=== PATIENT | male | born 1965 | race Caucasian/White ===

== ENCOUNTER 2016-11-29 17:33 | Emergency (ER) | payer MEDICAID ==
[~2016-11-29] VITALS: Ht 190.5 cm; Wt 131.5 kg
[~2016-11-29 17:33] MED LIST: CIPRO500 MG PO; COLACE100 M1 PO; LACTINEX1 TAB.CHEW PO; LEVAQUIN750 MG PO; NORCO 5/325 MG1 TAB PO; PERCOCET 325 MG1 TA1 PO; ULTRAM50 MG PO; ZOVIRAX800 M1 PO
[2016-11-29 18:50] VITALS: BP 125/80
--- NOTE | 2016-11-29 20:20 | NUR ---
PATIENT LEFT WITHOUT BEING SEEN BY DR. NAVA. NO FURTHER CARE PROVIDED FOR PATIENT.
== END 2016-11-29 20:20 | disposition left against medical advice (07) ==
LOC: MED 17:34
DX: M54.5 Low back pain (principal); Z53.21 Procedure and treatment not carried out due to patient leaving prior to being seen by health care provider

== ENCOUNTER 2017-03-12 01:45 | Emergency (ER) | payer OTHER, MEDICAID ==
[~2017-03-12] VITALS: Ht 190.5 cm; Wt 127.0 kg
[~2017-03-12 01:45] MED LIST changes: +ACET-5629 PO; -CIPRO500 MG PO; -COLACE100 M1 PO; +DOCU-67 PO; +LAC PO; -LACTINEX1 TAB.CHEW PO; -LEVAQUIN750 MG PO; +LEVO750T2 PO; -NORCO 5/325 MG1 TAB PO; -PERCOCET 325 MG1 TA1 PO; +TRAM50TA94 PO; -ULTRAM50 MG PO; -ZOVIRAX800 M1 PO
[2017-03-12 01:48] VITALS: BP 144/100
--- NOTE | 2017-03-12 03:03 | NUR ---
PT TAKEN TO BED 5
--- NOTE | 2017-03-12 03:15 | NUR ---
51 Y/O M /C/O RT FLANK PAIN FOR 3-4 DAYS, NAUSEA, AND CHILLS. ER MADE AWARE.
[2017-03-12 03:39] LABS: BASOPHILS # (AUTO) 0.4 K/uL (0.00-0.22); BASOPHILS % (AUTO) 4.2 % (0.0-2.0); EOSINOPHILS # (AUTO) 0.4 K/uL (0-0.4); EOSINOPHILS % (AUTO) 3.6 % (0.0-4.0); HEMATOCRIT 50.3 % (36-52); HEMOGLOBIN 16.3 g/dL (12.0-18.0); LYMPHOCYTES # (AUTO) 2.4 K/uL (2.0-11.5); LYMPHOCYTES % (AUTO) 24.9 % (20.5-51.1); MEAN CORPUSCULAR HEMOGLOBIN 29 pg (27-31); MEAN CORPUSCULAR HGB CONC 32 g/dL (33-37); MEAN CORPUSCULAR VOLUME 91 fL (80-94); MONOCYTES # (AUTO) 0.5 K/uL (0.8-1.0); MONOCYTES % (AUTO) 5.3 % (1.7-9.3); NEUTROPHILS # (AUTO) 6.1 K/uL (1.8-7.7); PLATELET COUNT (AUTO) 176 K/uL (140-450); RED BLOOD CELL COUNT(AUTO) 5.53 MIL/uL (4.20-6.10); RED CELL DISTRIBUTION WIDTH 13.1 % (11.6-13.7); WHITE BLOOD COUNT (AUTO) 9.8 K/uL (4.8-10.8)
[2017-03-12] MEDS ORDERED: KETOROLAC 30 MG/ML VIAL IVP ONE (03:40)
[2017-03-12] MEDS ORDERED: ONDANSETRON 4 MG/2 ML VIAL IVP ONE (03:40)
[2017-03-12 03:50] LABS: ANION GAP 11.3 (8-16); CALCIUM 8.8 mg/dL (8.5-10.1); CARBON DIOXIDE 25.6 mmol/L (21-32); CREATININE 0.7 mg/dL (0.7-1.3); POTASSIUM 3.9 mmol/L (3.5-5.1)
[2017-03-12 03:56] LABS: ALBUMIN 3.2 g/dL (3.4-5.0); TOTAL BILIRUBIN 0.6 mg/dL (0.0-1.0); TOTAL PROTEIN, SERUM 7.9 g/dL (6.4-8.2)
[2017-03-12] MEDS ORDERED: NACL 0.9% 1,000 ML IV ONE (04:25)
--- NOTE | 2017-03-12 04:34 | NUR ---
Dr. Joseph evaluating patient at bedside.
[2017-03-12] MEDS ORDERED: MORPHINE SULFATE 10 MG/ML SYR IVP ONE (04:35)
[2017-03-12 04:44] LABS: APPEARANCE,URINE SL CLOUDY (CLEAR); BILIRUBIN,URINE NEGATIVE (NEGATIVE); BLOOD, URINE NEGATIVE (NEGATIVE); COLOR,URINE YELLOW (YELLOW); LEUKOCYTE ESTERASE ,URINE NEGATIVE (NEGATIVE); NITRITE, URINE NEGATIVE (NEGATIVE); PROTEIN,URINE NEGATIVE (NEGATIVE); UGLUCOSE NEGATIVE (NEGATIVE); UROBILINOGEN,URINE 0.2 EU/dL (0.2 - 1)
[2017-03-12 05:02] LABS: BACTERIA,URINE 1+ /HPF (None Seen); MUCUS,URINE 2+ /LPF (None Seen); RBC,URINE 0-5 (RARE) /HPF (0-5); SQUAMOUS EPITHELIAL CELL,UR 0-3 (FEW) /LPF (0-3 (FEW))
--- NOTE | 2017-03-12 05:20 | NUR ---
PT RESTING IN BED, VSS, NO S/S OF DISTRESS NOTED AT THE MOMENT.
[2017-03-12] MEDS ORDERED: cefTRIAXone 2,000 MG in DEXTROSE 5% 100 ML IV ONE (06:00)
[2017-03-12] MEDS ORDERED: cefTRIAXone 2,000 MG VIAL ONE (06:24)
--- NOTE | 2017-03-12 06:34 | NUR ---
PT RESTING IN BED VSS, RECEIVING IV ANTIBIOTICS.
--- NOTE | 2017-03-12 07:00 | NUR ---
RECEIVED REPORT FROM RYAN BRADSHAW.Patient appears to be resting comfortably in bed. Vital Signs within normal limits. Respirations even and unlabored.WILL CONTINUE TO MONITOR.
--- NOTE | 2017-03-12 07:11 | NUR ---
IV removed, catheter intact and site benign. Applied folded 4x4 gauze and tape to stop bleeding.
[2017-03-12 07:13] VITALS: BP 104/69
--- NOTE | 2017-03-12 07:13 | NUR ---
Patient discharged with v/s stable. Written and verbal after care instructions given and explained. Patient alert, oriented and verbalized understanding of instructions. Ambulatory with steady gait. All questions addressed prior to discharge. ID band removed. Patient advised to follow up with PMD. Rx of NAPROSYN & CIPRO given. Patient educated on indication of medication including possible reaction and side effects. Opportunity to ask questions provided and answered.
== END 2017-03-12 07:13 | disposition home or self-care (01) ==
LOC: MED 01:45
DX: N39.0 Urinary tract infection, site not specified (principal); Z88.6 Allergy status to analgesic agent
CPT/HCPCS: 36415; 74176; 80053; 81001; 85025; 87086; 96361; 96365; 96375; 99285; J0696; J1885; J2270; J2405; J7030

== ENCOUNTER 2018-12-31 17:37 | Emergency (ER) | payer MEDICAID, OTHER ==
[~2018-12-31] VITALS: Ht 190.5 cm; Wt 150.1 kg
[~2018-12-31 17:37] MED LIST changes: +DOCU-299 PO; -DOCU-67 PO; +TRAM50TA1 PO; -TRAM50TA94 PO
[2018-12-31 17:43] VITALS: BP 134/66
--- NOTE | 2018-12-31 18:02 | NUR ---
PT TO ED WITH C/O L LEG AND LOWER BACK PAIN X 3 MOS. PT DENIES FALL OR TRAUMA. NO OBVIOUS DEFORMITY NOTED. CMS INTACT. +ROM. ABLE TO AMBULATE WITHOUT ASSIST. PT PLACED INTO BED, PENDING MD OTTO.
[2018-12-31] MEDS ORDERED: KETOROLAC 60 MG/2 ML VIAL IM ONE (19:20)
--- NOTE | 2018-12-31 19:34 | NUR ---
191-- DR. OROSCO BEDSIDE EVALUATING PT
[2018-12-31 19:42] VITALS: BP 129/72
== END 2018-12-31 19:43 | disposition home or self-care (01) ==
LOC: MED 17:37
DX: M54.5 Low back pain (principal); Z98.890 Other specified postprocedural states; Z79.891 Long term (current) use of opiate analgesic; Z79.2 Long term (current) use of antibiotics; Z79.899 Other long term (current) drug therapy; Z88.6 Allergy status to analgesic agent
CPT/HCPCS: 96372; 99283; J1885

== ENCOUNTER 2019-03-07 23:01 | Emergency (ER) | payer MEDICAID, OTHER ==
[~2019-03-07] VITALS: Ht 190.5 cm; Wt 151.0 kg
[2019-03-07 23:09] VITALS: BP 126/70
--- NOTE | 2019-03-07 23:17 | NUR ---
PT TAKEN TO BED 6
--- NOTE | 2019-03-07 23:20 | NUR ---
53 Y/O MALE PRESENTS TO ED, C/O RIGHT SHOULDER ACHING, SHARP PAIN 04/12. PT STATES HE WAS LIFTING OBJECTS AROUND THE HOUSE WHEN HE FELL AND LANDED ON HIS SIDE. NO HEAD TRAUMA ASSESSED. PT DENIES ANY SYNCOPAL EPISODE OR DIZZINESS DURING INCIDENT. PT ALERT TO PERSON, PLACE, TIME, EVENT. LIMITED ROM ON RIGHT SHOULDER. BILATERAL EQUAL STRONG PULSES ON BOTH ARMS. PT HAS NO MEDICAL HX. PT VSS. DR THAO AWARE. WILL CONTINUE TO MONITOR.
--- NOTE | 2019-03-07 23:29 | NUR ---
Dr. Bronson examining patient.
[2019-03-07] MEDS ORDERED: MORPHINE SULFATE 2 MG/ML SYR IM ONE (23:30)
--- NOTE | 2019-03-07 23:50 | NUR ---
X-Ray at bedside.
[2019-03-08] MEDS ORDERED: MORPHINE SULFATE 2 MG/ML SYR IM ONE (00:25)
--- NOTE | 2019-03-08 00:41 | NUR ---
COVERING PRIMARY RN FOR LUNCH RELIEF. ASSUMED TEMPORARY CARE OF PT.
[2019-03-08 01:05] VITALS: BP 122/64
--- NOTE | 2019-03-08 01:06 | NUR ---
Patient discharged with v/s stable. Written and verbal after care instructions given and explained. Patient alert, oriented and verbalized understanding of instructions. Ambulatory with steady gait. All questions addressed prior to discharge. ID band removed. Patient advised to follow up with PMD. Rx of TRAMDAOL given. Patient educated on indication of medication including possible reaction and side effects. Opportunity to ask questions provided and answered.
== END 2019-03-08 01:06 | disposition home or self-care (01) ==
LOC: MED 23:01
DX: S40.011A Contusion of right shoulder, initial encounter (principal); Z79.899 Other long term (current) drug therapy; Z88.8 Allergy status to other drugs, medicaments and biological substances; W01.0XXA Fall on same level from slipping, tripping and stumbling without subsequent striking against object, initial encounter; Y93.89 Activity, other specified; Y92.89 Other specified places as the place of occurrence of the external cause; Y99.8 Other external cause status
CPT/HCPCS: 73030; 96372; 99283; J2270; Q0092

== ENCOUNTER 2019-04-10 01:53 | Emergency (ER) | payer MEDICAID, OTHER ==
[~2019-04-10] VITALS: Ht 190.5 cm; Wt 140.6 kg
[2019-04-10 02:01] VITALS: BP 134/81
--- NOTE | 2019-04-10 02:05 | NUR ---
PT AMBULATED TO LOBBY.
--- NOTE | 2019-04-10 02:53 | NUR ---
PT TAKEN TO XRAY
--- NOTE | 2019-04-10 03:40 | NUR ---
PATIENT CALLED TO PUT ON BED NO RESPONSE PATIENT LEFT WITHOUT BEING SEEN BY DR. WEI. NO FURTHER CARE PROVIDED FOR PATIENT.
--- NOTE | 2019-04-10 03:45 | NUR ---
CALLED FOR THE SECOND TIME NO RESPONSE
--- NOTE | 2019-04-10 03:50 | NUR ---
CALLED FOR THE THIRD TIME, NO RESPONSE
== END 2019-04-10 03:40 | disposition left against medical advice (07) ==
LOC: MED 01:53
DX: S43.004A Unspecified dislocation of right shoulder joint, initial encounter (principal); R11.0 Nausea; Z53.21 Procedure and treatment not carried out due to patient leaving prior to being seen by health care provider; X58.XXXA Exposure to other specified factors, initial encounter; Y93.89 Activity, other specified; Y92.89 Other specified places as the place of occurrence of the external cause; Y99.8 Other external cause status
CPT/HCPCS: 73030; 99281

== ENCOUNTER 2019-04-11 07:46 | Emergency (ER) | payer SELFPAY ==
[~2019-04-11] VITALS: Ht 190.5 cm; Wt 147.2 kg
[2019-04-11 07:50] VITALS: BP 125/78
--- NOTE | 2019-04-11 08:04 | NUR ---
BIB SELF C/O RIGHT SHOULDER PAIN X 1.5 MONTHS S/P FALL. PT REPORTS MOVING A COUCH AND HE SLIPPED, FALLING BACK AND COUCH LANDED ON RT SHOULDER. PT REPORTS SHARP/POPPING PAIN AT 7/10 THAT RADIATES DOWN RT ARM CAUSING WEAKNESS, AND INCREASES WITH MOVING RT ARM. PT UNABLE TO LIFT RT ARM MORE THAT 30 DEGREES. NO ERYTHEMA, EDEMA, BRUISING, OR DEFORMITY PRESENT. RADIAL PULSE ON RT ARM 2+, CAP REFIL < 2 SEC, COLOR WNL. PT WAS SEEN HERE IN ED LAST MONTH AND WAS PRESCRIBED WITH TRAMADOL W/ NO RELIEF. PT WAS ALSO SEEN HERE ON 04/09/19 AND ELOPED. VSS. ER TO SEE PT. PMH:DENIES MED RX: DENIES ALLERGY: DENIES
[2019-04-11 08:39] VITALS: BP 125/78
== END 2019-04-11 08:39 | disposition home or self-care (01) ==
LOC: MED 07:46
DX: M75.41 Impingement syndrome of right shoulder (principal); Z98.890 Other specified postprocedural states; Z79.899 Other long term (current) drug therapy; Z79.2 Long term (current) use of antibiotics; Z79.891 Long term (current) use of opiate analgesic; Z88.6 Allergy status to analgesic agent
CPT/HCPCS: 99282

== ENCOUNTER 2019-12-21 16:48 | Emergency (ER) | payer MEDICAID, OTHER ==
[~2019-12-21] VITALS: Ht 190.5 cm; Wt 156.0 kg
[2019-12-21 16:56] VITALS: BP 126/78
--- NOTE | 2019-12-21 17:06 | NUR ---
PT C/O CONSISTENT SHARP RT POSTERIOR KNEE PAIN X 3 DAY, DENIES INJURY/TRAUMA. REPORTS 10/10 PAIN. NO EFFUSION, EYRTHEMA, WARMNESS, DEFORMITY NOTICED ON THE RT KNEE. SLIGHT REDUCED OF ROM ON RIGHT KNEE. PT IS ABLE TO AMBUALTE. PT DENIES ANY FEVER, CP, SOB, OR COUGH AT THIS TIME; VSS; PATIENT POSITIONED FOR COMFORT; HOB ELEVATED; BEDRAILS UP X1; BED DOWN. ER MD MADE AWARE OF PT STATUS.
--- NOTE | 2019-12-21 17:20 | NUR ---
XRAY IS AT BEDSIDE.
[2019-12-21] MEDS ORDERED: KETOROLAC 60 MG/2 ML VIAL IM ONE (17:30)
--- NOTE | 2019-12-21 17:35 | NUR ---
PT DENIES HE HAS ALLERGY TO IBUPROFEN AND HE DENIES HIS PCP TOLD ME NOT TO TAKE IBUPROFEN OR POOR KIDNEY FUNCTION.
--- NOTE | 2019-12-21 18:05 | NUR ---
PT DENIED CRUTCHES STATING HE HAS A BAD SHOULDER. TRIED TO DEMONSTRATE THE USE OF THE CRUTCHES JUST IN CASE, BUT PATIENT CONTINUED TO DENY. ER ASAD JONES MADE AWARE.
[2019-12-21 18:13] VITALS: BP 121/62
--- NOTE | 2019-12-21 18:16 | NUR ---
Patient discharged with v/s stable. Written and verbal after care instructions given and explained. Patient alert, oriented and verbalized understanding of instructions. Ambulatory with steady gait. All questions addressed prior to discharge. ID band removed. Patient advised to follow up with PMD. Rx of IBU given. Patient educated on indication of medication including possible reaction and side effects. Opportunity to ask questions provided and answered.
== END 2019-12-21 18:16 | disposition home or self-care (01) ==
LOC: MED 16:48
DX: M25.561 Pain in right knee (principal); Z88.6 Allergy status to analgesic agent; Z79.899 Other long term (current) drug therapy; X58.XXXA Exposure to other specified factors, initial encounter; Y93.89 Activity, other specified; Y99.8 Other external cause status
CPT/HCPCS: 29505; 73562; 96372; 99283; J1885

== ENCOUNTER 2019-12-27 10:54 | Emergency (ER) | payer MEDICAID, OTHER ==
[~2019-12-27] VITALS: Ht 190.5 cm; Wt 149.7 kg
[2019-12-27 11:03] VITALS: BP 116/77
--- NOTE | 2019-12-27 11:15 | NUR ---
DR LOPEZ AT BEDSIDE.
--- NOTE | 2019-12-27 11:15 | NUR ---
PT C/O KNEE PAIN. 12/26/19 PM PT STATES KNEE GAVE OUT AND TWISTED. SWELLING IS PRESENT SURROUNDING RIGHT KNEE. PAIN RADIATES DOWN TO RIGHT FOOT. PT CAME INTO ER LAST WEEK FOR KNEE PAIN. PT IS ABLE TO MOVE FOOT AND TOES. PT IS UNABLE TO PUT WEIGHT ON RIGHT LEG DUE TO KNEE PAIN. SKIN IS INTACT AND DRY. INJURED RIGHT KNEE IS WARM TO TOUCH. NO PMHX NKA/NKDA
[2019-12-27] MEDS ORDERED: HYDROcodone/APAP 5/325 MG 1 TAB TAB PO ONE (11:20)
[2019-12-27] MEDS ORDERED: KETOROLAC 60 MG/2 ML VIAL IM ONE (11:20)
--- NOTE | 2019-12-27 11:47 | NUR ---
MEDICATION GIVEN PRESCRIBED. FOR PAIN CONTROL.
[2019-12-27 12:07] VITALS: BP 116/77
--- NOTE | 2019-12-27 12:14 | NUR ---
Patient discharged with v/s stable. Written and verbal after care instructions given and explained. Patient alert, oriented and verbalized understanding of instructions. Ambulatory with steady gait. All questions addressed prior to discharge. ID band removed. Patient advised to follow up with PMD. Rx of NORCO 5MG-325MG TAB AND NAPROSYN 375MG TAB given. Patient educated on indication of medication including possible reaction and side effects. Opportunity to ask questions provided and answered.
--- NOTE | 2019-12-27 12:15 | NUR ---
APPLIED ANGELICA WRAP TO RIGHT KNEE AND PT DEMONSTRATED PROPER USE OF CRUTCHES
== END 2019-12-27 12:14 | disposition home or self-care (01) ==
LOC: MED 10:54
DX: S83.91XA Sprain of unspecified site of right knee, initial encounter (principal); M17.11 Unilateral primary osteoarthritis, right knee; Z79.899 Other long term (current) drug therapy; Z88.8 Allergy status to other drugs, medicaments and biological substances; X50.1XXA Overexertion from prolonged static or awkward postures, initial encounter; Y93.89 Activity, other specified; Y92.89 Other specified places as the place of occurrence of the external cause; Y99.8 Other external cause status
CPT/HCPCS: 73562; 96372; 99283; J1885; Q0092

== ENCOUNTER 2020-01-03 18:40 | Emergency (ER) | payer MEDICAID, OTHER ==
[~2020-01-03] VITALS: Ht 190.5 cm; Wt 145.1 kg
[2020-01-03 18:40] VITALS: BP 148/73
[2020-01-03 19:56] LABS: BASOPHILS # (AUTO) 0.2 K/uL (0.00-0.22); BASOPHILS % (AUTO) 1.9 % (0.0-2.0); EOSINOPHILS # (AUTO) 0.1 K/uL (0-0.4); EOSINOPHILS % (AUTO) 0.9 % (0.0-4.0); HEMOGLOBIN 13.9 g/dL (12.0-18.0); LYMPHOCYTES # (AUTO) 1.4 K/uL (2.0-11.5); LYMPHOCYTES % (AUTO) 15.1 % (20.5-51.1); MEAN CORPUSCULAR HEMOGLOBIN 32 pg (27-31); MEAN CORPUSCULAR HGB CONC 35 g/dL (33-37); MEAN CORPUSCULAR VOLUME 91.5 fL (80-94); MONOCYTES % (AUTO) 10.8 % (1.7-9.3); NEUTROPHILS # (AUTO) 6.7 K/uL (1.8-7.7); NEUTROPHILS % (AUTO) 71.3 % (42.2-75.2); PLATELET COUNT (AUTO) 243 K/uL (140-450); RED BLOOD CELL COUNT(AUTO) 4.37 MIL/uL (4.20-6.10); RED CELL DISTRIBUTION WIDTH 13.2 % (11.6-13.7); WHITE BLOOD COUNT (AUTO) 9.4 K/uL (4.8-10.8)
[2020-01-03] MEDS ORDERED: AZITHROMYCIN 500 MG in DEXTROSE 5% 250 ML IV ONE (20:15)
[2020-01-03] MEDS ORDERED: AZITHROMYCIN 500 MG INJ VIAL IV ONE (20:19)
[2020-01-03] MEDS ORDERED: cefTRIAXone 1,000 MG VIAL ONE (20:20)
[2020-01-03 20:37] LABS: BILIRUBIN,URINE 2+ (NEGATIVE); BLOOD, URINE NEGATIVE (NEGATIVE); LEUKOCYTE ESTERASE ,URINE NEGATIVE (NEGATIVE); NITRITE, URINE POSITIVE (NEGATIVE); UGLUCOSE TRACE (NEGATIVE)
[2020-01-03 20:40] LABS: APPEARANCE,URINE HAZY (CLEAR)
[2020-01-03 20:45] LABS: PROTHROMBIN TIME 10.9 secs (10.8-13.4)
[2020-01-03 20:46] LABS: ALBUMIN 2.8 g/dL (3.4-5.0); ANION GAP 13.5 (8-16); CARBON DIOXIDE 26.5 mmol/L (21-32); CREATININE 0.9 mg/dL (0.6-1.3); TOTAL BILIRUBIN 1.2 mg/dL (0.0-1.0)
[2020-01-03 20:59] LABS: CREATINE KINASE MB 0.3 ng/mL (0-3.6)
[2020-01-03 21:06] LABS: COLOR,URINE AMBER (YELLOW)
[2020-01-03] MEDS ORDERED: POTASSIUM CHLORIDE 10 MEQ TABER PO ONE (21:15)
[2020-01-03 22:15] VITALS: BP 124/72
== END 2020-01-03 22:15 | disposition home or self-care (01) ==
LOC: MED 18:40
DX: J18.9 Pneumonia, unspecified organism (principal); E87.6 Hypokalemia; F17.200 Nicotine dependence, unspecified, uncomplicated; N39.0 Urinary tract infection, site not specified; R68.83 Chills (without fever); Z88.6 Allergy status to analgesic agent; Z79.899 Other long term (current) drug therapy
CPT/HCPCS: 36415; 71045; 80053; 81003; 82140; 82150; 82550; 82553; 83605; 83690; 84484; 85025; 85610; 85730; 87040; 87086; 96365; 96367; 99284; J0456; J0696

== ENCOUNTER 2021-06-08 20:20 | Emergency (ER) | payer MEDICAID, OTHER ==
[~2021-06-08] VITALS: Ht 190.5 cm; Wt 149.7 kg
[2021-06-08 20:29] VITALS: BP 154/80
--- NOTE | 2021-06-08 20:42 | NUR ---
PT AMBULATED TO BED 11.
--- NOTE | 2021-06-08 20:44 | NUR ---
PATIENT REPORTS RUQ ABDOMINAL PAIN, WAS SEEN AT [facility] RECENTLY FOR PAIN BUT WAS NOT SATISFIED WITH THEIR PAIN MANAGEMENT. RECENT RIGHT SHOULDER SX
--- NOTE | 2021-06-08 20:53 | NUR ---
ER AT BEDSIDE
[2021-06-08] MEDS ORDERED: PANTOPRAZOLE 40 MG TABEC PO ONE (20:55)
[2021-06-08] MEDS ORDERED: DICYCLOMINE HCL LIQUID 20 MG, ALUMINUM HYD/MAG/SIMETHICONE 30 ML, LIDOCAINE VISCOUS 2% ... PO ONE ×3 (20:55)
[2021-06-08] MEDS ORDERED: HYDROcodone/APAP 5/325 MG 1 TAB TAB PO ONE (20:55)
[2021-06-08] MEDS ORDERED: NACL 0.9% 1,000 ML IV ONE (20:55)
[2021-06-08] MEDS ORDERED: DICYCLOMINE HCL LIQUID 10 MG/5 ML UDC ONE (21:15)
[2021-06-08] MEDS ORDERED: ALUMINUM HYD/MAG/SIMETHICONE 30 ML UDC ONE (21:15)
[2021-06-08 21:21] LABS: BASOPHILS # (AUTO) 0.1 K/uL (0.00-0.22); BASOPHILS % (AUTO) 0.9 % (0.0-2.0); EOSINOPHILS # (AUTO) 0.1 K/uL (0-0.4); EOSINOPHILS % (AUTO) 1.3 % (0.0-4.0); HEMATOCRIT 45.6 % (36-52); HEMOGLOBIN 15.9 g/dL (12.0-18.0); LYMPHOCYTES # (AUTO) 2.2 K/uL (2.0-11.5); LYMPHOCYTES % (AUTO) 21.9 % (20.5-51.1); MEAN CORPUSCULAR HEMOGLOBIN 32 pg (27-31); MEAN CORPUSCULAR HGB CONC 35 g/dL (33-37); MEAN CORPUSCULAR VOLUME 91.3 fL (80-94); MONOCYTES # (AUTO) 0.7 K/uL (0.8-1.0); MONOCYTES % (AUTO) 7.4 % (1.7-9.3); NEUTROPHILS # (AUTO) 6.8 K/uL (1.8-7.7); NEUTROPHILS % (AUTO) 68.5 % (42.2-75.2); PLATELET COUNT (AUTO) 188 K/uL (140-450); RED CELL DISTRIBUTION WIDTH 13.7 % (11.6-13.7); WHITE BLOOD COUNT (AUTO) 9.9 K/uL (4.8-10.8)
[2021-06-08 21:41] LABS: ALBUMIN 3.6 g/dL (3.4-5.0); CARBON DIOXIDE 24.9 mmol/L (21-32); CREATININE 0.7 mg/dL (0.6-1.3); POTASSIUM 3.9 mmol/L (3.5-5.1)
[2021-06-08] MEDS ORDERED: MORPHINE SULFATE 4 MG/ML SYR IVP ONE (22:10)
[2021-06-09] MEDS ORDERED: MORPHINE SULFATE 4 MG/ML SYR IVP ONE (01:50)
[2021-06-09] MEDS ORDERED: OMEP20EC11 PO (03:27)
--- NOTE | 2021-06-09 03:39 | NUR ---
PATIENT CLEARED FOR DISCHARGE AT THIS TIME. PATIENT HAS NO FURTHER COMPLAINTS OR CONCERNS FOLLOWING DISCHARGE TEACHING. ADVISED TO FOLLOW UP WITH PCP AND RETURN IF CONDITION WORSENS.
[2021-06-09 03:40] VITALS: BP 132/77
== END 2021-06-09 03:39 | disposition home or self-care (01) ==
LOC: MED 20:20
DX: R10.11 Right upper quadrant pain (principal)
CPT/HCPCS: 36415; 74177; 80053; 83690; 85025; 96361; 96374; 96375; 99285; J2270; Q9967; J7030

== ENCOUNTER 2022-02-07 06:15 | Emergency (ER) | payer OTHER ==
[~2022-02-07] VITALS: Ht 190.5 cm; Wt 149.7 kg
[~2022-02-07 06:15] MED LIST changes: +OMEP20EC11 PO
[2022-02-07 06:23] VITALS: BP 135/75
--- NOTE | 2022-02-07 06:28 | NUR ---
Patient waited in lobby.
--- NOTE | 2022-02-07 06:31 | NUR ---
Dr. Lara examining patient.
[2022-02-07] MEDS ORDERED: ONDANSETRON 4 MG ODT PO ONE ×2 (06:35→09:00)
[2022-02-07] MEDS ORDERED: KETOROLAC 60 MG/2 ML VIAL IM ONE (06:35)
[2022-02-07] MEDS ORDERED: DIPHENOXYLATE /ATROPINE 2.5 MG TAB PO ONE (06:35)
[2022-02-07 08:10] LABS: BASOPHILS # (AUTO) 0.2 K/uL (0.00-0.22); BASOPHILS % (AUTO) 1.4 % (0.0-2.0); EOSINOPHILS # (AUTO) 0.1 K/uL (0-0.4); EOSINOPHILS % (AUTO) 1.1 % (0.0-4.0); HEMATOCRIT 48.4 % (36-52); HEMOGLOBIN 16.3 g/dL (12.0-18.0); LYMPHOCYTES # (AUTO) 2.7 K/uL (2.0-11.5); LYMPHOCYTES % (AUTO) 24.4 % (20.5-51.1); MEAN CORPUSCULAR HEMOGLOBIN 30 pg (27-31); MEAN CORPUSCULAR HGB CONC 34 g/dL (33-37); MEAN CORPUSCULAR VOLUME 89.8 fL (80-94); MONOCYTES # (AUTO) 0.9 K/uL (0.8-1.0); MONOCYTES % (AUTO) 8.2 % (1.7-9.3); NEUTROPHILS # (AUTO) 7.2 K/uL (1.8-7.7); NEUTROPHILS % (AUTO) 64.9 % (42.2-75.2); PLATELET COUNT (AUTO) 174 K/uL (140-450); RED BLOOD CELL COUNT(AUTO) 5.39 MIL/uL (4.20-6.10); RED CELL DISTRIBUTION WIDTH 14.8 % (11.6-13.7); WHITE BLOOD COUNT (AUTO) 11.1 K/uL (4.8-10.8)
[2022-02-07 08:14] LABS: ALBUMIN 3.5 g/dL (3.4-5.0); ANION GAP 14.1 (8-16); CARBON DIOXIDE 24.1 mmol/L (21-32); POTASSIUM 4.2 mmol/L (3.5-5.1)
[2022-02-07 08:38] LABS: CREATININE 0.8 mg/dL (0.6-1.3)
[2022-02-07] MEDS ORDERED: ALUMINUM HYD/MAG/SIMETHICONE 30 ML UDC PO ONE (09:00)
[2022-02-07] MEDS ORDERED: FAMOTIDINE 20 MG TAB PO ONE (09:00)
[2022-02-07] MEDS ORDERED: ATRO1TAB PO (10:02)
[2022-02-07] MEDS ORDERED: ACET-8386 PO (10:02)
[2022-02-07] MEDS ORDERED: ONDA-188 PO (10:02)
[2022-02-07] MEDS ORDERED: FAMO-92 PO (10:02)
[2022-02-07 10:11] VITALS: BP 141/87
--- NOTE | 2022-02-07 10:11 | NUR ---
Patient discharged with v/s stable. Written and verbal after care instructions given and explained. Patient alert, oriented and verbalized understanding of instructions. Ambulatory with steady gait. All questions addressed prior to discharge. ID band removed. Patient advised to follow up with PMD. Rx of PEPCID, LOMOTIL, ZOFRAN AND NORCO 5-325 given. Patient educated on indication of medication including possible reaction and side effects. Opportunity to ask questions provided and answered. EDUCATED ON USE OF NARCOTICS, ADVISED TO AVOID ALCOHOL/DRIVING WHILE USING.
== END 2022-02-07 10:11 | disposition home or self-care (01) ==
LOC: MED 06:15
DX: R11.10 Vomiting, unspecified (principal); R19.7 Diarrhea, unspecified; R10.10 Upper abdominal pain, unspecified; R74.01 Elevation of levels of liver transaminase levels; F17.290 Nicotine dependence, other tobacco product, uncomplicated; Z79.899 Other long term (current) drug therapy; Z98.890 Other specified postprocedural states
CPT/HCPCS: 36415; 80053; 83690; 85025; 96372; 99284; J1885; Q0162

== ENCOUNTER 2023-03-27 14:34 | Emergency (ER) | payer OTHER, MEDICAID ==
[~2023-03-27] VITALS: Ht 190.5 cm; Wt 131.5 kg
[2023-03-27 15:10] VITALS: BP 140/86; PULSE 77; RESP 18; TEMP 97.6; O2SAT 97
[2023-03-27] MEDS ORDERED: CYCLOBENZAPRINE 10 MG TAB PO ONE (16:15)
[2023-03-27] MEDS ORDERED: KETOROLAC 60 MG/2 ML VIAL IM ONE (16:15)
== END 2023-03-27 20:15 | disposition left against medical advice (07) ==
LOC: MED 14:34
DX: M54.41 Lumbago with sciatica, right side (principal)
CPT/HCPCS: 96372; 99283; J1885

== ENCOUNTER 2023-06-27 19:55 | Emergency (ER) | payer OTHER, MEDICAID ==
[~2023-06-27] VITALS: Ht 190.5 cm; Wt 131.5 kg
[2023-06-27 20:02] VITALS: BP 132/85; PULSE 97; RESP 24; TEMP 97.9; O2SAT 98
[2023-06-27] MEDS ORDERED: DICYCLOMINE HCL LIQUID 10 MG/5 ML UDC ONE (20:18)
[2023-06-27] MEDS ORDERED: ALUMINUM HYD/MAG/SIMETHICONE 30 ML UDC ONE (20:18)
[2023-06-27] MEDS: DICYCLOMINE HCL LIQUID 20 MG, ALUMINUM HYD/MAG/SIMETHICONE 30 ML, LIDOCAINE VISCOUS 2% ... PO ONE ×3 (20:21)
[2023-06-27 20:31] LABS: BASOPHILS # (AUTO) 0.1 K/uL (0.00-0.22); BASOPHILS % (AUTO) 0.8 % (0.0-2.0); EOSINOPHILS % (AUTO) 0.3 % (0.0-4.0); HEMATOCRIT 46.7 % (36-52); HEMOGLOBIN 15.5 g/dL (12.0-18.0); LYMPHOCYTES # (AUTO) 2.4 K/uL (2.0-11.5); LYMPHOCYTES % (AUTO) 17.7 % (20.5-51.1); MEAN CORPUSCULAR HEMOGLOBIN 30 pg (27-31); MEAN CORPUSCULAR HGB CONC 33 g/dL (33-37); MEAN CORPUSCULAR VOLUME 90.1 fL (80-94); MONOCYTES # (AUTO) 0.7 K/uL (0.8-1.0); MONOCYTES % (AUTO) 5.2 % (1.7-9.3); NEUTROPHILS # (AUTO) 10.1 K/uL (1.8-7.7); PLATELET COUNT (AUTO) 171 K/uL (140-450); RED BLOOD CELL COUNT(AUTO) 5.19 MIL/uL (4.20-6.10); RED CELL DISTRIBUTION WIDTH 14.3 % (11.6-13.7); WHITE BLOOD COUNT (AUTO) 13.3 K/uL (4.8-10.8)
[2023-06-27 20:45] LABS: ALBUMIN 3.5 g/dL (3.4-5.0); CALCIUM 8.8 mg/dL (8.5-10.1); CARBON DIOXIDE 24.5 mmol/L (21-32); CREATININE 0.8 mg/dL (0.6-1.3); POTASSIUM 4.5 mmol/L (3.5-5.1); TOTAL BILIRUBIN 1.1 mg/dL (0.0-1.0); TOTAL PROTEIN, SERUM 8.3 g/dL (6.4-8.2)
[2023-06-27] MEDS ORDERED: MAA30 PO (22:23)
[2023-06-27] MEDS ORDERED: ONDA-188 PO (22:23)
[2023-06-27] MEDS ORDERED: FAMO-90 PO (22:23)
[2023-06-27] MEDS ORDERED: SUCR1TAB35 PO (22:23)
[2023-06-27] MEDS ORDERED: PANT40EC PO (22:23)
[2023-06-27] MEDS: ONDANSETRON 4 MG ODT PO ONE (22:34)
[2023-06-27] MEDS: MORPHINE SULFATE 4 MG/ML SYR IM ONE (22:37)
[2023-06-27 22:53] VITALS: O2SAT 98
== END 2023-06-27 22:40 | disposition home or self-care (01) ==
LOC: MED 19:55
DX: K29.70 Gastritis, unspecified, without bleeding (principal); R74.01 Elevation of levels of liver transaminase levels; R77.0 Abnormality of albumin; Z86.69 Personal history of other diseases of the nervous system and sense organs; Z98.890 Other specified postprocedural states; Z79.899 Other long term (current) drug therapy
CPT/HCPCS: 36415; 74176; 80053; 83690; 85025; 96372; 99285; J2270; Q0162